=== PATIENT | male | born 1985 | race Caucasian/White ===

== ENCOUNTER 2018-11-01 13:58 | Emergency (ER) | payer OTHER ==
[2018-11-01 14:02] VITALS: BP 136/82; PULSE 98; RESP 18; TEMP 98.1
--- NOTE | 2018-11-01 14:38 | XR ---
EXAMINATION TYPE: XR ankle complete RT DATE OF EXAM: 11/01/2018 COMPARISON: NONE HISTORY: Pain FINDINGS: Three views of the ankle demonstrate the ankle mortise to be intact and symmetric. The joint spaces are preserved. The osseous structures are intact. A spur along acute Achilles insertion of the calc aneus. Soft tissue swelling along the lateral margin of the ankle. IMPRESSION: 1. No definite acute fracture or dislocation, if symptoms persist follow-up study in 7 to 10 days wou ld be suggested.
--- NOTE | 2018-11-01 14:45 | ED ---
Lower Extremity Injury HPI - General Chief Complaint: Extremity Injury, Lower Stated Complaint: Ankle injury Time Seen by Provider: 11/01/18 14:04 Source: patient Mode of arrival: wheelchair Limitations: no limitations - History of Present Illness Initial Comments: 33-year-old male presenting for right ankle pain x ~18 hours. Patient states last night she was hoarse her mouth a friend when he twisted his right ankle inward. Patient states there has been soft tissue swelling of the right ankle and pain with fully weightbearing. Patient denies any pain to the foot or pain of the knee. Patient denies any head injury or injury to the neck or back. Remaining review of systems negative. Patient denies numbness tingling pallor or loss sensation of the right lower extremity. - Related Data Allergies Allergy/AdvReac Type Severity Reaction Status Date / Time No Known Allergies Allergy Verified 11/01/18 14:02 Review of Systems ROS Statement: Those systems with pertinent positive or pertinent negative responses have been documented in the HPI. ROS Other: All systems not noted in ROS Statement are negative. Past Medical History Past Medical History: No Reported History History of Any Multi-Drug Resistant Organisms: None Reported Past Surgical History: No Surgical Hx Reported Past Psychological History: Anxiety, Depression Smoking Status: Light tobacco smoker Past Alcohol Use History: Occasional Past Drug Use History: Marijuana General Exam - General Exam Comments Initial Comments: General: The patient is awake and alert, in no distress, and does not appear acutely ill. Eye: Pupils are equal, round and reactive to light, extra-ocular movements are intact. No nystagmus. There is normal conjunctiva bilaterally. No signs of icterus. Cardiovascular: There is a regular rate and rhythm. No murmur, rub or gallop is appreciated. Respiratory: Lungs are clear to auscultation, respirations are non-labored, breath sounds are equal. No wheezes, stridor, rales, or rhonchi. Musculoskeletal: Upon inspection of the ankles bilaterally there is moderate soft tissue swelling on the lateral malleolus of the right ankle. In comparison the left. Otherwise the lacerations abrasions. Patient is able to fully range at the ankles bilaterally however complains of discomfort at the right ankle. There is noted to be bilateral 5 out of 5 strength of the ankles knees and hips bilaterally. No pain with rotation of the hips. Patient is able to weight-bear however this is painful. No pain to palpation of the forefoot. Dorsalis pedis pulses are +2 and equal comparison bilaterally. Sensation intact both proximal distal to injury site. No evidence of foot drop. Neurological: A&O x 3. CN II-XII intact grossly , There are no obvious motor or sensory deficits. Coordination appears grossly intact. Speech is normal. Skin: Skin is warm and dry and no rashes or lesions are noted. Psychiatric: Cooperative, appropriate mood & affect, normal judgment. Limitations: no limitations Course Vital Signs 11/01/18 14:00 Temperature 98.1 F Pulse Rate 98 Respiratory 18 Rate Blood Pressure 136/82 O2 Sat by Pulse 98 Oximetry Medical Decision Making - Medical Decision Making 33-year-old male presenting for right ankle pain after inversion injury. Imaging studies negative for osseous process. Patient neurovascularly intact. Splint in place with stirrups. Patient given prescription for crutches. Patient is to follow-up with orthopedic surgery given concern for more severe sprain. Rice instruction was discussed. As well as the importance of follow- up. Patient verbalizes understanding. Repeat neurovascular exam after splint was placed revealed no changes. Time I do feel patient is stable for discharge with outpatient follow-up. Return parameters discussed at length. Disposition Clinical Impression: Moderate right ankle sprain, Right ankle injury, Right ankle pain Disposition: HOME SELF-CARE Condition: Good Instructions (If sedation given, give patient instructions): Ankle Sprain (ED), R.I.C.E. Treatment (ED) Additional Instructions: Please use medication as discussed. Please follow-up with orthopedic surgery in the next week, use crutches for ambulation/comfort. Please return to emergency room if the symptoms increase or worsen or for any other concerns. Is patient prescribed a controlled substance at d/c from ED?: No Referrals: Indra Nash MD [Primary Care Provider] - 1-2 days Carlos A Olson MD [STAFF PHYSICIAN] - 1-2 days Time of Disposition: 14:44
== END 2018-11-01 15:01 | disposition home or self-care (01) ==
LOC: EC 13:58
DX: S93.401A Sprain of unspecified ligament of right ankle, initial encounter (principal); F17.200 Nicotine dependence, unspecified, uncomplicated; X50.9XXA Other and unspecified overexertion or strenuous movements or postures, initial encounter
CPT/HCPCS: 29515; 99283

== ENCOUNTER → 2018-12-29 | Outpatient (CLI) | payer OTHER ==
--- NOTE | 2018-12-29 15:09 | MR ---
EXAMINATION TYPE: MR ankle RT wo con DATE OF EXAM: 12/29/2018 COMPARISON: Right ankle x-rays dated 11/11/2018 HISTORY: Right ankle pain. TECHNIQUE: Multiplanar, multisequence images of the right ankle were acquired without contrast. FINDINGS: The anterior talofibular ligament and posterior talofibular ligament are intact. There is a small tib iotalar joint effusion predominating posteriorly and surrounding the posterior talofibular ligament. The deltoid ligament is also intact as is the spring ligament and the visualized portions of the [place] ranc ligament. There is high signal within the anterior fibers and insertional posterior fibers of th e deltoid ligament indicative of low-grade sprain. There is a small amount of bone marrow edema within the medial malleolus and the medial talar dome. T his measures 6 mm. Slight chondral irregularity is seen overlying the medial talar dome such as on P D and T1 coronal sequences, image 14. Vascular grooves are seen however no discrete fracture line is identified. Trace amount of fluid is seen surrounding the flexor tendons and lateral compartment tendons without discrete thickening of the tendons. Extensor compartment tendons are unremarkable. Sinus tarsus is predominantly fat intensity and unremarkable. The plantar fascia and Achilles tendon are unremarkable. Very small heel spurs are seen. Osseous proliferative changes also seen of the dors al talonavicular joint and posterior facet of the calcaneus, mild. IMPRESSION: 1. Focal bone marrow edema of the medial talar dome and medial malleolus without fracture. There is a lso an associated low-grade sprain of the deltoid ligament and some chondral irregularity overlying t he medial talar dome. No current osteochondral defect. 2. Fluid signal is seen surrounding the lateral compartment tendons and flexor compartment tendons wi thout focal thickening. Mild tenosynovitis considered. 3. Small uncomplicated tibiotalar joint effusion.
== END | disposition home or self-care (01) ==
LOC: RADMRIMAIN 11:17
PROVIDERS: ATTEND Orthopaedic Surgery
DX: S93.401D Sprain of unspecified ligament of right ankle, subsequent encounter (principal); M65.9 Synovitis and tenosynovitis, unspecified

== ENCOUNTER 2021-03-15 08:28 | Emergency (ER) | payer OTHER ==
[2021-03-15 08:37] VITALS: RESP 18; TEMP 98.9
[2021-03-15 09:46] LABS: Appearance,Urine Clear (Clear); Basophils # (A) 0.1 k/uL (0-0.2); Basophils % (A) 1 %; Bilirubin,Urine Negative (Negative); Blood,Urine Negative (Negative); Color,Urine Yellow; Eosinophils # (A) 0.2 k/uL (0-0.7); Eosinophils % (A) 1 %; Glucose,Urine (UA) Negative (Negative); HCT 42.9 % (39.0-53.0); HGB 14.5 gm/dL (13.0-17.5); Ketones,Urine Negative (Negative); Leukocyte Esterase,Urine Negative (Negative); Lymphocytes # (A) 2.5 k/uL (1.0-4.8); Lymphocytes % (A) 21 %; MCHC 33.8 g/dL (31.0-37.0); MCV 88.7 fL (80.0-100.0); Mean Platelet Volume 7.1; Monocytes # (A) 0.7 k/uL (0-1.0); Monocytes % (A) 6 %; Neutrophils # (A) 8.2 k/uL (1.3-7.7); Neutrophils % (A) 70 %; Nitrite,Urine Negative (Negative); PH, Urine 5.5 (5.0-8.0); Platelet Count 246 k/uL (150-450); Protein,Urine Negative (Negative); RBC 4.84 m/uL (4.30-5.90); RDW 12.8 % (11.5-15.5); Specific Gravity,Urine 1.013 (1.001-1.035); Urobilinogen,Urine <2.0 mg/dL (<2.0); WBC 11.7 k/uL (3.8-10.6)
[2021-03-15 09:57] LABS: ALT 66 U/L (4-49); AST 39 U/L (17-59); African American GFR (CKD) >90 (>60 ml/min/1.73 sqM); Albumin 4.3 g/dL (3.5-5.0); Alkaline Phosphatase 73 U/L (38-126); Amylase 59 U/L (30-110); Anion Gap 9 mmol/L; Blood Urea Nitrogen 13 mg/dL (9-20); Calcium 9.3 mg/dL (8.4-10.2); Carbon Dioxide 22 mmol/L (22-30); Chloride 107 mmol/L (98-107); Glucose 107 mg/dL (74-99); Lipase 75 U/L (23-300); Non-African American GFR(CKD) >90 (>60 ml/min/1.73 sqM); Potassium 4.8 mmol/L (3.5-5.1); Sodium 138 mmol/L (137-145); Total Bilirubin 0.8 mg/dL (0.2-1.3); Total Protein 7.5 g/dL (6.3-8.2)
[2021-03-15] MEDS ORDERED: KETOROLAC 15 MG/ML 1 ML VIAL IVP STA (10:04)
[2021-03-15] MEDS ORDERED: ONDANSETRON 4 MG/2 ML VIAL IVP STA (10:04)
[2021-03-15] MEDS ORDERED: HYDROmorphone 0.5 MG/0.5 ML SYRINGE IVP STA (10:04)
--- NOTE | 2021-03-15 10:34 | CT ---
EXAMINATION TYPE: CT abdomen pelvis w con DATE OF EXAM: 03/15/2021 COMPARISON: None HISTORY: Left lower quadrant pain CT DLP: 1264.6 mGycm Automated exposure control for dose reduction was used. TECHNIQUE: Helical acquisition of images was performed from the lung bases through the pelvis. CONTRAST: Performed without Oral Contrast and with IV Contrast, patient injected with 100 mL of Isovue 300. FINDINGS: The lung bases are clear. The gallbladder is normal without distention, wall thickening, gallstones or pericholecystic fluid. T here is no biliary ductal dilatation. There is no focal mass or organomegaly involving the liver, pancreas, spleen or adrenal glands. The kidneys excrete contrast promptly and symmetrically and there is no solid renal mass or hydroneph rosis. There is no retroperitoneal adenopathy or hemorrhage in the caliber of the common aorta is nor mal. The bowel loops are normal in caliber and there is no evidence of obstruction. There is a small focal area of hazy density in the pericolic fat of the proximal sigmoid colon in the left lower quadrant w hich likely represents mild diverticulitis. There is diverticulosis throughout the colon. There is no abscess, or free intraperitoneal air or fluid. There is no pelvic adenopathy or mass. The rectum, prostate and urinary bladder normal. IMPRESSION: Suggestion of mild focal diverticulitis of the proximal sigmoid colon without free intraperitoneal ai r or fluid or abscess. No other significant abnormality seen within the abdomen.
[2021-03-15] MEDS ORDERED: cefTRIAXone IN SWFI 1,000 MG/10 ML SYRINGE IVP STA (10:36)
[2021-03-15] MEDS ORDERED: ACET/COD 300 MG/30 MG STARTER PACK 6 TAB BTL PO STA (10:39)
--- NOTE | 2021-03-15 10:39 | ED ---
Abdominal Pain HPI - General Chief Complaint: Abdominal Pain Stated Complaint: Lower Lt Abd Pain Time Seen by Provider: 03/15/21 08:41 Source: patient, RN notes reviewed Mode of arrival: ambulatory Limitations: no limitations - History of Present Illness Initial Comments: 35-year-old male presents emergency Department with chief complaint of left lower quadrant abdominal pain. Patient states symptoms started 3 days ago have progressed and worsened states it is worse with certain movement especially sitting up or pressing on it. Patient denies any known fever or chills no prior abdominal surgeries no prior history of diverticulitis no history kidney stones no flank pain. Patient denies any chest pain or shortness breath no other complaints. - Related Data Previous Rx's Medication Instructions Recorded Amoxicillin/Potassium Clav 1 tab PO Q12HR #20 tab 03/15/21 [Augmentin 875-125 Tablet] Allergies Allergy/AdvReac Type Severity Reaction Status Date / Time No Known Allergies Allergy Verified 03/15/21 08:37 Review of Systems ROS Statement: Those systems with pertinent positive or pertinent negative responses have been documented in the HPI. ROS Other: All systems not noted in ROS Statement are negative. Past Medical History Past Medical History: No Reported History History of Any Multi-Drug Resistant Organisms: None Reported Past Surgical History: No Surgical Hx Reported Past Psychological History: Anxiety, Depression Smoking Status: Vaper Past Alcohol Use History: Occasional Past Drug Use History: Marijuana General Exam Limitations: no limitations General appearance: alert, in no apparent distress Head exam: Present: atraumatic, normocephalic, normal inspection Respiratory exam: Present: normal lung sounds bilaterally. Absent: respiratory distress, wheezes, rales, rhonchi, stridor Cardiovascular Exam: Present: regular rate, normal rhythm, normal heart sounds. Absent: systolic murmur, diastolic murmur, rubs, gallop, clicks GI/Abdominal exam: Present: soft, tenderness (Left lower quadrant tenderness), normal bowel sounds. Absent: distended, guarding, rebound, rigid Back exam: Absent: CVA tenderness (R), CVA tenderness (L) Course Vital Signs 03/15/21 08:35 Temperature 98.9 F Pulse Rate 98 Respiratory 18 Rate Blood Pressure 129/83 O2 Sat by Pulse 97 Oximetry Medical Decision Making - Medical Decision Making 35-year-old presented for abdominal pain CT shows focal diverticulitis no abscess or free air. Patient we discharge on oral antibiotics return parameters were discussed. - Lab Data Result diagrams: 03/15/21 09:26 03/15/21 09:26 Lab Results 03/15/21 03/15/21 03/15/21 Range/Units 09:26 09: 09:26 WBC 11.7 H (3.8-10.6) k/uL RBC 4.84 (4.30-5.90) m/uL Hgb 14.5 (13.0-17.5) gm/dL Hct 42.9 (39.0-53.0) % MCV 88.7 (80.0-100.0) fL MCH 30.0 (25.0-35.0) pg MCHC 33.8 (31.0-37.0) g/dL RDW 12.8 (11.5-15.5) % Plt Count 246 (150-450) k/uL MPV 7.1 Neutrophils % 70 % Lymphocytes % 21 % Monocytes % 6 % Eosinophils % 1 % Basophils % 1 % Neutrophils # 8.2 H (1.3-7.7) k/uL Lymphocytes # 2.5 (1.0-4.8) k/uL Monocytes # 0.7 (0-1.0) k/uL Eosinophils # 0.2 (0-0.7) k/uL Basophils # 0.1 (0-0.2) k/uL Sodium 138 (137-145) mmol/L Potassium 4.8 (3.5-5.1) mmol/L Chloride 107 (98-107) mmol/L Carbon Dioxide 22 (22-30) mmol/L Anion Gap 9 mmol/L BUN 13 (9-20) mg/dL Creatinine 0.69 (0.66-1.25) mg/dL Est GFR (CKD-EPI)AfAm >90 (>60 ml/min/1.73 sqM) Est GFR (CKD-EPI)NonAf >90 (>60 ml/min/1.73 sqM) Glucose 107 H (74-99) mg/dL Plasma Lactic Acid Meek (0.7-2.0) mmol/L Calcium 9.3 (8.4-10.2) mg/dL Total Bilirubin 0.8 (0.2-1.3) mg/dL AST 39 (17-59) U/L ALT 66 H (4-49) U/L Alkaline Phosphatase 73 (38-126) U/L Total Protein 7.5 (6.3-8.2) g/dL Albumin 4.3 (3.5-5.0) g/dL Amylase 59 (30-110) U/L Lipase 75 (23-300) U/L Urine Color Yellow Urine Appearance Clear (Clear) Urine pH 5.5 (5.0-8.0) Ur Specific [place] 1.013 (1.001-1.035) Urine Protein Negative (Negative) Urine Glucose (UA) Negative (Negative) Urine Ketones Negative (Negative) Urine Blood Negative (Negative) Urine Nitrite Negative (Negative) Urine Bilirubin Negative (Negative) Urine Urobilinogen <2.0 (<2.0) mg/dL Ur Leukocyte Esterase Negative (Negative) 03/15/21 Range/Units 09:26 WBC (3.8-10.6) k/uL RBC (4.30-5.90) m/uL Hgb (13.0-17.5) gm/dL Hct (39.0-53.0) % MCV (80.0-100.0) fL MCH (25.0-35.0) pg MCHC (31.0-37.0) g/dL RDW (11.5-15.5) % Plt Count (150-450) k/uL MPV Neutrophils % % Lymphocytes % % Monocytes % % Eosinophils % % Basophils % % Neutrophils # (1.3-7.7) k/uL Lymphocytes # (1.0-4.8) k/uL Monocytes # (0-1.0) k/uL Eosinophils # (0-0.7) k/uL Basophils # (0-0.2) k/uL Sodium (137-145) mmol/L Potassium (3.5-5.1) mmol/L Chloride (98-107) mmol/L Carbon Dioxide (22-30) mmol/L Anion Gap mmol/L BUN (9-20) mg/dL Creatinine (0.66-1.25) mg/dL Est GFR (CKD-EPI)AfAm (>60 ml/min/1.73 sqM) Est GFR (CKD-EPI)NonAf (>60 ml/min/1.73 sqM) Glucose (74-99) mg/dL Plasma Lactic Acid [place]ek 0.5 L (0.7-2.0) mmol/L Calcium (8.4-10.2) mg/dL Total Bilirubin (0.2-1.3) mg/dL AST (17-59) U/L ALT (4-49) U/L Alkaline Phosphatase (38-126) U/L Total Protein (6.3-8.2) g/dL Albumin (3.5-5.0) g/dL Amylase (30-110) U/L Lipase (23-300) U/L Urine Color Urine Appearance (Clear) Urine pH (5.0-8.0) Ur Specific [place] (1.001-1.035) Urine Protein (Negative) Urine Glucose (UA) (Negative) Urine Ketones (Negative) Urine Blood (Negative) Urine Nitrite (Negative) Urine Bilirubin (Negative) Urine Urobilinogen (<2.0) mg/dL Ur Leukocyte Esterase (Negative) Disposition Clinical Impression: Acute diverticulitis Disposition: HOME SELF-CARE Condition: Stable Instructions (If sedation given, give patient instructions): Diverticulitis (ED), Diverticulitis Diet (ED) Additional Instructions: Please return to the Emergency Department if symptoms worsen or any other concerns. Prescriptions: Amoxicillin/Potassium Clav [Augmentin 875-125 Tablet] 1 tab PO Q12HR #20 tab Is patient prescribed a controlled substance at d/c from ED?: No Referrals: Elvia Cheng MD [Primary Care Provider] - 1-2 days Time of Disposition: 10:39
[2021-03-15 11:06] VITALS: BP 123/87; PULSE 85
== END 2021-03-15 11:05 | disposition home or self-care (01) ==
LOC: EC 08:28
DX: K57.32 Diverticulitis of large intestine without perforation or abscess without bleeding (principal); F41.9 Anxiety disorder, unspecified; F32.A Depression, unspecified; F17.290 Nicotine dependence, other tobacco product, uncomplicated; F12.90 Cannabis use, unspecified, uncomplicated
CPT/HCPCS: 99284; 96374; 96375 ×3; 36415; 80053; 82150; 83605; 83690; 85025; 81003; 74177; J2405; J0696; J1885; J1170; Q9967

== ENCOUNTER → 2022-07-23 | Outpatient (CLI) | payer OTHER ==
--- NOTE | 2022-07-28 07:57 | MR ---
EXAMINATION TYPE: MR ankle RT wo con DATE OF EXAM: 07/23/2022 COMPARISON: Previous MRI 12/29/2018 and radiograph 11/01/2018 HISTORY: 36-year-old male S93.421A, M76.821, Right ankle pain, hx injury 4 years ago. TECHNIQUE: Multiplanar, multisequence images of the right ankle were obtained without IV contrast. FINDINGS: There is focal osteoarthritic change along the mid medial talar dome with prominent subchondral cysti c and other signal change measuring 1.6 cm AP and 0.7 cm wide. Findings are new from the prior exam i n 2019. Subtalar joint align. No acute or healing fracture, abnormal bone marrow replacement, or additional areas of marrow edema a re identified. Smooth delineation to the Achilles tendon. Tiny plantar heel spur. Origin of the plantar fascia is in tact. Preserved fatty signal within the sinus Tarsi. The tarsal tunnel is clear. The anterior extensor tendons and syndesmosis are intact. There is mild tenosynovial fluid along the posterior tibial tendon. Medial flexor tendons and deltoid ligament appear intact. The deltoid spring ligament complex appears intact. The lateral ligamentous complex and peroneal tendons appear intact. IMPRESSION: 1. The previously described signal changes along the mid medial talar dome have evolved to focal mode rate to severe osteoarthritic change measuring 1.6 cm AP by 0.7 cm wide. No unstable osteochondral le bhumika is identified. 2. Some fluid along the posterior tibial tendon could be physiologic or could reflect a mild tenosyno vitis.
== END | disposition home or self-care (01) ==
LOC: RADMRIMAIN 08:07
PROVIDERS: ATTEND Podiatrist Foot & Ankle Surgery
DX: S93.421A Sprain of deltoid ligament of right ankle, initial encounter (principal); M19.071 Primary osteoarthritis, right ankle and foot; M76.821 Posterior tibial tendinitis, right leg

== ENCOUNTER → 2023-09-16 | Outpatient (CLI) | payer MEDICARE, OTHER ==
--- NOTE | 2023-09-16 13:57 | US ---
EXAMINATION TYPE: US abdomen complete DATE OF EXAM: 09/16/2023 COMPARISON: CLINICAL INDICATION: Male, 37 years old with history of R74.01 ELEVATED ALT; Abnormal labs TECHNIQUE: Multiple sonographic images of the abdomen are obtained. FINDINGS: EXAM MEASUREMENTS: Liver Length: 14.5 cm Gallbladder Wall: 0.2 cm CBD: 0.4 cm Spleen: 9.4 cm Right Kidney: 11.1 x 5.4 x 5.2 cm Left Kidney: 10.2 x 4.7 x 5.5 cm Pancreas: Echogenic in appearance, tail not well seen Liver: wnl Gallbladder: no wall thickening or stones Evidence for sonographic Olson's sign: neg CBD: wnl Spleen: wnl Right Kidney: No hydronephrosis or masses seen Left Kidney: No hydronephrosis or masses seen Upper IVC: wnl Abd Aorta: No AAA visualized at time of scan IMPRESSION: Limited evaluation of pancreas. No significant abnormality seen.
== END | disposition home or self-care (01) ==
LOC: RADUSWWP 08:01
PROVIDERS: ATTEND Family Medicine
DX: R74.01 Elevation of levels of liver transaminase levels (principal); R79.89 Other specified abnormal findings of blood chemistry
CPT/HCPCS: 76700

== ENCOUNTER → 2023-12-02 | Day surgery (SDC) | payer MEDICARE, OTHER ==
[2023-11-30 10:44] VITALS: BMI 30.1
[~2023-12-02] MED LIST: PROPOFOL 10 MG/ML 20 ML VIAL IV ONE
[2023-12-02 08:39] VITALS: RESP 16
[2023-12-02] MEDS: IV FLUID CONTINUATION 1,000 ML IV ONE (08:40)
[2023-12-02] MEDS: LACTATED RINGERS 1,000 ML IV SCH (08:49)
--- NOTE | 2023-12-02 09:38 | P.OP ---
Date of Procedure: 12/02/23 Preoperative Diagnosis: Anal pain Postoperative Diagnosis: Internal hemorrhoids Colon polyp Procedure(s) Performed: Colonoscopy Anesthesia: MAC Surgeon: Arben James Pathology: other (Colon polyp) Condition: stable Disposition: PACU Description of Procedure: The patient is placed on the endoscopy table in the lateral position. He received IV sedation. Digital rectal exam was performed which revealed internal hemorrhoids. Flexible colonoscope was then placed patient anus and passed throughout the entire colon. The ileocecal valve was visualized. The cecum appeared normal. In the right colon there is a small sessile polyp. This removed with a cold forcep. Scope withdrawn the remainder of the right colon appeared normal. The transverse colon appeared normal. The descending colon appeared normal. The sigmoid colon Renoquid scope was then withdrawn the rectum this appeared normal. Scope withdrawn through the anus and internal hemorrhoids are noted. Scope withdrawn for the patient.
[2023-12-02 10:01] VITALS: BP 126/83; PULSE 84
== END | disposition home or self-care (01) ==
LOC: ORWHC2ENDO 08:21
PROVIDERS: ATTEND Surgery
DX: D12.2 Benign neoplasm of ascending colon (principal); K64.8 Other hemorrhoids; F41.8 Other specified anxiety disorders; F12.90 Cannabis use, unspecified, uncomplicated; F17.290 Nicotine dependence, other tobacco product, uncomplicated; U07.0 Vaping-related disorder; F32.A Depression, unspecified; Z79.899 Other long term (current) drug therapy
CPT/HCPCS: 45380; 88305

== ENCOUNTER 2024-01-26 07:36 | Day surgery (SDC) | payer MEDICARE, OTHER ==
[~2024-01-26 07:36] MED LIST changes: +LIDOCAINE 1% (10MG/ML) FOR IV START INTRADERMA PRN; +MIDAZOLAM 2 MG/2 ML VIAL IV PRN; -PROPOFOL 10 MG/ML 20 ML VIAL IV ONE; +fentaNYL (PF) 50 MCG/ML 2 ML AMP IVP PRN; +metroNIDAZOLE-NS PMX 500 MG in SALINE 1 100ML.BAG IVPB PRN
[2024-01-26] MEDS: IV FLUID CONTINUATION 1,000 ML IV ONE ×2 (07:57)
[2024-01-26 08:11] LABS: Glucose,Whole Blood 96 mg/dL (70-110)
[2024-01-26] MEDS: LACTATED RINGERS 1,000 ML IV SCH (08:12)
[2024-01-26] MEDS: ACETAMINOPHEN TAB 500 MG TAB PO PRN (08:14)
[2024-01-26] MEDS: HEPARIN SODIUM,PORCINE 5,000 UNIT/ML 1 ML VIAL SQ PRN (08:14)
[2024-01-26] MEDS: ONDANSETRON 4 MG/2 ML VIAL IVP ONE (08:14)
[2024-01-26] MEDS: DEXAMETHASONE SOD PHOSPHATE 4 MG/ML 1 ML VIAL IV ONE (08:14)
[2024-01-26] MEDS ORDERED: PROPOFOL 10 MG/ML 20 ML VIAL IV ONE (09:16)
[2024-01-26] MEDS ORDERED: MIDAZOLAM 2 MG/2 ML VIAL ONE (09:16)
[2024-01-26] MEDS ORDERED: HYDROmorphone (PF) 1 MG/ML ONE (09:16)
[2024-01-26] MEDS ORDERED: SUCCINYLCHOLINE CHLORIDE 200 MG/10 ML VIAL IV ONE (09:16)
[2024-01-26] MEDS ORDERED: fentaNYL (PF) 50 MCG/ML 2 ML AMP ONE (09:16)
[2024-01-26] MEDS ORDERED: KETOROLAC 15 MG/ML 1 ML VIAL ONE (09:16)
[2024-01-26] MEDS: LIDOCAINE 1%-EPI 1:100,000 20 ML VIAL SQ ONE ×2 (09:38)
[2024-01-26 10:02] VITALS: TEMP 97
--- NOTE | 2024-01-26 10:02 | P.OP ---
Date of Procedure: 01/26/24 Preoperative Diagnosis: rectal abscess scess Postoperative Diagnosis: Perirectal abscess Anal fistula Procedure(s) Performed: Drainage of peritoneal abscess Unroofing of perianal fistula Anesthesia: DECLAN Surgeon: Arben James Estimated Blood Loss (ml): 5 Pathology: none sent Condition: stable Disposition: PACU Description of Procedure: The patient is placed in the operative table in the supine position. He received general anesthesia. He was then placed in the prone jackknife position. His anus was prepped and draped you sterile fashion. Patient had a fistula noted at the 6 o'clock position. The fistula was probed. The fistula extended posteriorly towards the perineal body. The fistulous tract was unroofed. The abscess cavity was drained. The wound was packed with wet-to-dry Kerlix. Patient Toller procedure well. He was sent to recovery in stable condition.
[2024-01-26] MEDS: HYDROmorphone 0.5 MG/0.5 ML SYRINGE IVP PRN (10:07)
[2024-01-26 10:10] VITALS: RESP 18
[2024-01-26 10:47] VITALS: BP 125/79; PULSE 79
== END 2024-01-26 11:01 | disposition home or self-care (01) ==
LOC: OR 07:36
PROVIDERS: ATTEND Surgery
DX: K61.1 Rectal abscess (principal); K64.3 Fourth degree hemorrhoids; F41.9 Anxiety disorder, unspecified; F32.A Depression, unspecified; F17.290 Nicotine dependence, other tobacco product, uncomplicated; Z79.85 Long-term (current) use of injectable non-insulin antidiabetic drugs; Z79.899 Other long term (current) drug therapy; Z87.19 Personal history of other diseases of the digestive system; Z80.0 Family history of malignant neoplasm of digestive organs; Z83.79 Family history of other diseases of the digestive system